=== PATIENT | male | born 1970 | race African-American/Black ===

== ENCOUNTER 2017-05-19 21:26 | Emergency (ER) | payer BC ==
--- NOTE | 2017-05-20 01:21 | EDM.PDOC ---
ED HPI GENERAL MEDICAL PROBLEM - General Chief Complaint: Cardiovascular Problem Stated Complaint: HIGH BLOOD PRESSURE Time Seen by Provider: 05/19/17 23:15 Source of Information: Reports: Patient, RN Notes Reviewed History Limitations: Reports: No Limitations - History of Present Illness INITIAL COMMENTS - FREE TEXT/NARRATIVE: The patient states that he felt "funny" him a meaning that he felt tired and sleepy today. He also reports right lower extremity stiffness today, but no recent swelling. He came to the ED to get checked out. He expressed he denies recent fever, nausea, vomiting, constipation, diarrhea, urinary symptoms, cough , chest pain, palpitations, abdominal pain, or headache. He states that he has a history of a DVT and PE around 2008. He states that he was on Lovenox for short time, perhaps a week, but states that he was not then placed on an oral anticoagulant. He states that a hypercoagulable workup was not performed, to his knowledge. He takes aspirin 81 mg daily as a DVT preventative. He states that his work requires him to switch between working days and nights, and has recently been working nights. Were it not for coming to the ED, he would ordinarily be at work at this time. - Related Data Allergies Allergy/AdvReac Type Severity Reaction Status Date / Time No Known Allergies Allergy Verified 05/19/17 21:54 Home Meds: Home Meds . [No Known Home Meds] 05/19/17 [History] Past Medical History - Past Surgical History Musculoskeletal Surgical History: Reports: Carpal Tunnel (right) Social & Family History - Tobacco Use Smoking Status *Q: Never Smoker - Caffeine Use Caffeine Use: Reports: Energy Drinks, Soda - Alcohol Use Alcohol Use History: Yes Alcohol Use Frequency: Socially - Recreational Drug Use Recreational Drug Use: No - Living Situation & Occupation Living situation: Reports: Single, Alone Occupation: Employed ( Services) ED ROS GENERAL - Review of Systems Review Of Systems: See Below Constitutional: Reports: No Symptoms HEENT: Reports: No Symptoms Respiratory: Reports: No Symptoms Cardiovascular: Reports: No Symptoms Endocrine: Reports: No Symptoms GI/Abdominal: Reports: No Symptoms : Reports: No Symptoms Musculoskeletal: Reports: No Symptoms Skin: Reports: No Symptoms Neurological: Reports: No Symptoms Psychiatric: Reports: No Symptoms Hematologic/Lymphatic: Reports: No Symptoms Immunologic: Reports: No Symptoms ED EXAM, GENERAL - Physical Exam Exam: See Below Exam Limited By: No Limitations General Appearance: Alert, WD/WN, No Apparent Distress Eye Exam: Bilateral Eye: Normal Inspection Ears: Normal External Exam, Hearing Grossly Normal Nose: Normal Inspection, No Blood Throat/Mouth: Normal Inspection, Normal Lips, Normal Voice, No Airway Compromise Head: Atraumatic, Normocephalic Neck: Normal Inspection, Full Range of Motion Respiratory/Chest: No Respiratory Distress, Lungs Clear, Normal Breath Sounds, No Accessory Muscle Use Cardiovascular: Normal Peripheral Pulses, Regular Rate, Rhythm, No Edema, No Gallop, No JVD, No Murmur, No Rub Peripheral Pulses: 4+: Radial (L), Radial (R) GI/Abdominal: Normal Bowel Sounds, Soft, Non-Tender, No Organomegaly, No Distention, No Abnormal Bruit, No Mass (Male) Exam: Deferred Rectal (Males) Exam: Deferred Back Exam: Normal Inspection, Full Range of Motion, NT Extremities: Normal Inspection, Normal Range of Motion, Non-Tender, Normal Capillary Refill, No Pedal Edema Neurological: Alert, Oriented, Normal Cognition, No Motor/Sensory Deficits Psychiatric: Normal Affect Skin Exam: Warm, Dry, Intact, Normal Color, No Rash Course - Vital Signs Last Recorded V/S: Last Vital Signs Temp 36.7 C 05/19/17 21:50 Pulse 80 05/19/17 21:50 Resp 16 05/19/17 21:50 BP 173/123 H 05/19/17 21:50 Pulse Ox 97 05/19/17 21:50 - Orders/Labs/Meds Orders: Active Orders 24 hr Category Date Time Status Venous Doppler Lwr Ext Bi [US] Stat Exams 05/20/17 01:21 Ordered Labs: Laboratory Tests 05/20/17 05/20/17 Range/Units 00:25 00:25 PT 10.0 (8.0-13.0) SECONDS INR 0.92 APTT 24 (22-36) SECONDS D-Dimer, Quantitative 0.92 H (0.19-0.59) mg/L Sodium 141 (136-145) mEq/L Potassium 3.4 L (3.5-5.1) mEq/L Chloride 106 (98-107) mEq/L Carbon Dioxide 27 (21-32) mEq/L Anion Gap 11.4 (5-15) BUN 19 H (7-18) mg/dL Creatinine 1.3 (0.7-1.3) mg/dL Est Cr Clr Drug Dosing 70.15 mL/min Estimated GFR (MDRD) > 60 (>60) mL/min BUN/Creatinine Ratio 14.6 (14-18) Glucose 101 (74-106) mg/dL Calcium 9.2 (8.5-10.1) mg/dL - Re-Assessments/Exams Free Text/Narrative Re-Assessment/Exam: 05/20/17 01:20 The patient's D-dimer has returned modestly elevated at 0.94. Clinically, I do not suspect a PE, as he has absolutely no signs or symptoms of a PE, and one would expect a D-dimer to be higher than 0.94 with a PE. A lower extremity DVT, on the other hand, could certainly cause a D-dimer of 0.94. I offered a Doppler ultrasound of the lower extremity to evaluate for DVT, and the patient has agreed. 05/20/17 02:57 Notified by the robotics testing technician that no DVT was found. 05/20/17 03:07 Test results discussed with the patient. The patient appears to be somewhat fatigued, but no acute illness was found. He states that he is intending on taking a few days off. I will refer him to Dr. Brian for follow-up. Departure - Departure Time of Disposition: 03:08 Disposition: Home, Self-Care 01 Condition: Good Clinical Impression: Fatigue Referrals: PCP,None [Primary Care Provider] - Raj Brian [Physician] - Forms: ED Department Discharge, ED Return to Work/School Form Additional Instructions: You were seen in the emergency room for feeling tired and sleepy, along with right leg stiffness. Workup in the ER included blood work and a Doppler of your right lower extremity. While your D-dimer was elevated, the Doppler did not find any evidence of a blood clot. Your symptoms of fatigue may be related to the hours that you have been working. Follow-up with Dr. Brian in the clinic as needed. If any other problems, please do not hesitate to return to the ER. - My Orders Last 24 Hours: My Active Orders 05/20/17 01:21 Venous Doppler Lwr Ext Bi [US] Stat - Assessment/Plan Last 24 Hours: My Active Orders 05/20/17 01:21 Venous Doppler Lwr Ext Bi [US] Stat
--- NOTE | 2017-05-20 07:43 | US ---
Bilateral lower extremity deep venous ultrasound: Duplex and color flow imaging was obtained of the right and left common femoral, proximal greater saphenous, superficial femoral, popliteal and posterior tibial veins. Comparison: No previous study. Findings: Normal phasic flow, augmentation and compression are seen. No popliteal cyst is identified. Impression: 1. No evidence of deep venous thrombosis within the right or left lower extremities. Diagnostic code #1 Agree with preliminary report issued by [facility] ([facility] preliminary report dictated on 05/20/17, 4:21 AM Central Time)
== END 2017-05-20 03:20 | disposition home or self-care (01) ==
LOC: JD.ED 21:26
DX: R53.83 Other fatigue (principal); Z86.718 Personal history of other venous thrombosis and embolism; Z86.711 Personal history of pulmonary embolism; Z79.82 Long term (current) use of aspirin
CPT/HCPCS: 36415; 80048; 85379; 85610; 85730; 93970; 93970-26; 99283; 99284-25

== ENCOUNTER 2017-12-20 04:09 | Emergency (ER) | payer BC ==
[2017-12-20] MEDS ORDERED: Metoprolol Tartrate 50 MG Tab PO ONE (04:31)
--- NOTE | 2017-12-20 04:37 | EDM.PDOC ---
ED HPI GENERAL MEDICAL PROBLEM - General Chief Complaint: Cardiovascular Problem Stated Complaint: HIGH BLOOD PRESSURE Time Seen by Provider: 12/20/17 04:26 Source of Information: Reports: Patient History Limitations: Reports: No Limitations - History of Present Illness INITIAL COMMENTS - FREE TEXT/NARRATIVE: The patient presents with high blood pressure. He was at work and he checked his blood pressure. It was elevated so he came in. He had high blood pressure and he stopped taking his medication. He has no complaints such as headache, chest pain or shortness of breath. He does not remember the medication he was on. Onset: Gradual Severity: Mild Improves with: Reports: None Worsens with: Reports: None Associated Symptoms: Reports: No Other Symptoms - Related Data Allergies Allergy/AdvReac Type Severity Reaction Status Date / Time No Known Allergies Allergy Verified 12/20/17 04:15 Home Meds: Home Meds Hydrochlorothiazide 25 mg PO DAILY #30 tab 12/20/17 [Rx] Past Medical History Cardiovascular History: Reports: Hypertension - Past Surgical History Musculoskeletal Surgical History: Reports: Carpal Tunnel Social & Family History - Family History Family Medical History: Noncontributory - Tobacco Use Smoking Status *Q: Never Smoker - Caffeine Use Caffeine Use: Reports: Coffee, Energy Drinks - Recreational Drug Use Recreational Drug Use: No - Living Situation & Occupation Living situation: Reports: Alone, Single Occupation: Employed ( Services) ED ROS GENERAL - Review of Systems Review Of Systems: See Below Constitutional: Reports: No Symptoms HEENT: Reports: No Symptoms Respiratory: Reports: No Symptoms Cardiovascular: Reports: No Symptoms Endocrine: Reports: No Symptoms GI/Abdominal: Reports: No Symptoms : Reports: No Symptoms Musculoskeletal: Reports: No Symptoms ED EXAM, GENERAL - Physical Exam Exam: See Below Exam Limited By: No Limitations General Appearance: Alert, No Apparent Distress Ears: Normal External Exam Nose: Normal Inspection Head: Atraumatic, Normocephalic Neck: Normal Inspection Respiratory/Chest: No Respiratory Distress, Lungs Clear, Normal Breath Sounds Cardiovascular: Regular Rate, Rhythm, No Edema, No Murmur GI/Abdominal: Soft, Non-Tender, No Organomegaly, No Mass Back Exam: Normal Inspection Extremities: Normal Inspection Course - Vital Signs Last Recorded V/S: Last Vital Signs Temp 98.7 F 12/20/17 04:13 Pulse 70 12/20/17 04:13 Resp 16 12/20/17 04:13 BP 184/126 H 12/20/17 04:13 Pulse Ox 98 12/20/17 04:13 - Orders/Labs/Meds Orders: Active Orders 24 hr Category Date Time Status Metoprolol Tartrate [Lopressor] Med 12/20/17 04:31 Once 50 mg PO ONETIME ONE - Re-Assessments/Exams Free Text/Narrative Re-Assessment/Exam: 12/20/17 04:34 I ordered a dose of metoprolol. I will get him on some HCTZ and have him follow up with Dr Brian. Departure - Departure Time of Disposition: 04:35 Disposition: Home, Self-Care 01 Condition: Good Clinical Impression: Hypertension Qualifiers: Hypertension type: essential hypertension Qualified Code(s): I10 - Essential ( primary) hypertension Prescriptions: Hydrochlorothiazide 25 mg PO DAILY #30 tab Referrals: Raj Brian [Physician] - 1 Week Forms: ED Department Discharge, ED Return to Work/School Form Additional Instructions: Take the hydrochlorothiazide daily. This will take a few days to bring your blood pressure down. Follow up with Dr Brian in a week or 2. Please return if you are worse. - My Orders Last 24 Hours: My Active Orders 12/20/17 04:31 Metoprolol Tartrate [Lopressor] 50 mg PO ONETIME ONE - Assessment/Plan Last 24 Hours: My Active Orders 12/20/17 04:31 Metoprolol Tartrate [Lopressor] 50 mg PO ONETIME ONE
== END 2017-12-20 04:40 | disposition home or self-care (01) ==
LOC: JD.ED 04:09
DX: I10 Essential (primary) hypertension (principal); Z79.899 Other long term (current) drug therapy
CPT/HCPCS: 99283; A9270